=== PATIENT | female | born 1945 | race Caucasian/White ===

== ENCOUNTER 2022-08-07 10:01 | Inpatient (IN) ==
[~2022-08-07 10:01] MED LIST: Buffered Lidocaine 1% SYRIN 1 ml INTRADERM ONE; Lactated Ringers 1000 ml BAG 1,000 ML IV SCH; Naloxone 0.4 mg VIAL 0.4 mg/ml 1 ml VIAL IV PRN; Ondansetron 4 mg VIAL 2 MG/ML 2 ml VIAL IV PRN; Tranexamic Acid 1,000 MG/10 ML 1,000 MG in NS 0.9% 50 ML 50 ML IV SCH; fentaNYL 100 mcg/2 ml 50 MCG/ML VIAL IV PRN; oxyCODONE/Acetamin 5/325 mg TAB PO PRN
[2022-08-07] MEDS ORDERED: Lidocaine 2% PF 5 ML VIAL ONE (10:15)
[2022-08-07] MEDS ORDERED: Propofol 10 MG/ML 20 ML BTL ONE (10:16)
[2022-08-07] MEDS ORDERED: Clindamycin 900 MG/50 **NS BAG 900 MG/50 ML BAG ONE (10:45)
[2022-08-07 10:59] LABS: Rapid COVID-19 Molecular Undetected (Undetected)
[2022-08-07] MEDS ORDERED: Midazolam 2 mg/2 ml VIAL 1 mg/ml 2 ml VIAL (2 mg) ONE (12:08)
[2022-08-07] MEDS ORDERED: ROPIVACAINE 5 MG/ML 30 ML BTL (0.5%) ONE ×2 (12:10→14:29)
[2022-08-07] MEDS ORDERED: fentaNYL 250 mcg/5 ml 50 MCG/ML 5 ml VIAL (250 MCG) ONE (13:04)
[2022-08-07] MEDS ORDERED: ceFAZolin VIAL VIAL ONE (13:16)
[2022-08-07] MEDS ORDERED: Ketamine HCL 50 mg/ml 10 ml VIAL (500 MG) ONE (13:27)
[2022-08-07] MEDS ORDERED: Dexamethasone IV 4 MG/ML VIAL 1 ml VIAL ONE (13:30)
[2022-08-07] MEDS ORDERED: Ondansetron 4 mg VIAL 2 MG/ML 2 ml VIAL ONE ×2 (13:30→15:45)
[2022-08-07] MEDS ORDERED: Acetaminophen IV 1 GM/100ML 1,000 MG/100 ML BAG IV ONE (13:30)
[2022-08-07] MEDS ORDERED: Ondansetron ODT 4 mg TAB 4 MG TAB PO PRN (13:54)
[2022-08-07] MEDS ORDERED: Ondansetron 4 mg VIAL 2 MG/ML 2 ml VIAL IV PRN (13:54)
[2022-08-07] MEDS ORDERED: Morphine 2 MG/ML SYRINGE IV PRN (13:54)
[2022-08-07] MEDS ORDERED: Magnesium Hydroxide LIQ 30 ML UDC PO PRN (13:54)
[2022-08-07] MEDS ORDERED: Lactulose 30 ml UDC PO PRN (13:54)
[2022-08-07] MEDS ORDERED: fentaNYL 100 mcg/2 ml 50 MCG/ML VIAL ONE (15:56)
[2022-08-07] MEDS ORDERED: oxyCODONE/Acetamin 5/325 mg TAB ONE (15:58)
[2022-08-07] MEDS: Lactated Ringers 1000 ml BAG 1,000 ML IV SCH (18:46)
[2022-08-07] MEDS: Magnesium Hydroxide LIQ 30 ML UDC PO SCH (22:06)
[2022-08-07] MEDS: ceFAZolin 1 GM ADVAN 1 GM in NS 0.9% 50 ML 50 ML IVPB SCH (22:27)
[2022-08-08] MEDS: Lactated Ringers 1000 ml BAG 1,000 ML IV SCH (05:03)
[2022-08-08] MEDS: ceFAZolin 1 GM ADVAN 1 GM in NS 0.9% 50 ML 50 ML IVPB SCH ×2 (05:03→13:36)
[2022-08-08 06:21] LABS: Hematocrit 35.3 % (35-45); Hemoglobin 11.7 g/dL (11.5-14.3); Mean Platelet Volume 8.4 fL (7.5-11.2); Platelet Count 289 10^3/uL (150-450)
[2022-08-08 06:49] LABS: Calcium 8.8 mg/dL (8.6-10.3); Creatinine, Serum 0.87 mg/dL (0.51-0.95); Potassium 4.3 mmol/L (3.5-5.0)
[2022-08-08] MEDS: Magnesium Hydroxide LIQ 30 ML UDC PO SCH (08:00)
[2022-08-08] MEDS ORDERED: Vitamin THERAPEUTIC TAB PO SCH (09:00)
[2022-08-08 11:42] VITALS: BP 125/66
== END 2022-08-08 14:50 | disposition home or self-care (01) | DRG 470 ==
LOC: AA 10:01 → INTOOBSV 10:01 → SSU 13:55
PROVIDERS: ADMIT Orthopaedic Surgery Adult Reconstructive Orthopaedic Surgery; ATTEND Orthopaedic Surgery Adult Reconstructive Orthopaedic Surgery